=== PATIENT | female | born 1940 | race Caucasian/White ===

== ENCOUNTER 2017-04-26 18:44 | Inpatient (IN) | payer MEDICARE ==
[~2017-04-26] VITALS: Ht 162.6 cm; Wt 68.9 kg
[2017-04-26] MEDS ORDERED: Z GUARD REMEDY PASTE 57 GM TUBE TOP PRN (19:45)
[2017-04-26] MEDS ORDERED: MAGN400O6 PO (19:52)
[2017-04-26] MEDS ORDERED: ACET-2154 PO (19:52)
[2017-04-26] MEDS ORDERED: ENOX40DI SQ (19:52)
[2017-04-26] MEDS ORDERED: MAG-55 PO (19:52)
[2017-04-26] MEDS ORDERED: HYDR-3326 PO (19:52)
[2017-04-26] MEDS ORDERED: ZOLP5TAB8 PO (19:52)
[2017-04-26] MEDS ORDERED: HYDROCODONE/APAP 5-325MG TABLET PO PRN (20:30)
[2017-04-26] MEDS ORDERED: Medication Not On Formulary EA (Mag Hydrox/Al Hydrox/Simeth (Maalox Max Strength Susp) 3 PO PRN (20:30)
[2017-04-26] MEDS ORDERED: MAGNESIUM HYDROXIDE 30 ML LIQUID UDC PO PRN (20:30)
[2017-04-26] MEDS ORDERED: ZOLPIDEM 5 MG TABLET PO PRN (20:30)
[2017-04-26] MEDS ORDERED: MAG HYDROX/AL HYDROX/SIMETH 30 ML LIQUID UDC PO PRN (20:45)
[2017-04-26 21:21] VITALS: BP 138/70
[2017-04-27 09:28] LABS: BASOPHILS % (AUTO) 0.4 % (0.0-2.0); EOSINOPHILS # (AUTO) 0.1 K/uL (0.0-0.7); EOSINOPHILS % (AUTO) 1.4 % (0.0-7.0); HEMATOCRIT 26.9 % (31.2-41.9); HEMOGLOBIN 9.2 g/dL (10.9-14.3); LYMPHOCYTES # (AUTO) 1.6 K/uL (20.0-40.0); LYMPHOCYTES % (AUTO) 22.4 % (20.5-51.5); MEAN CORPUSCULAR HEMOGLOBIN 32.7 uug (24.7-32.8); MEAN CORPUSCULAR HGB CONC 34 g/dL (32.3-35.6); MEAN CORPUSCULAR VOLUME 95.6 fL (75.5-95.3); MONOCYTES # (AUTO) 0.6 K/uL (2.0-10.0); NEUTROPHILS % (AUTO) 67.8 % (38.5-71.5); PLATELET COUNT (AUTO) 224 K/uL (179-408); RED BLOOD CELL COUNT(AUTO) 2.82 MIL/uL (3.63-4.92); WHITE BLOOD COUNT (AUTO) 7.4 K/uL (3.8-11.8)
[2017-04-27 09:37] VITALS: BP 121/55
[2017-04-27 09:38] LABS: IRON, SERUM 17 ug/dL (50-175)
[2017-04-27 09:43] LABS: THYROID STIMULATING HORMONE 0.656 mIU/mL (0.358-3.740)
[2017-04-27 09:58] LABS: ALANINE AMINOTRANSFERASE 27 U/L (14-59); ALKALINE PHOSPHATASE 73 U/L (50-136); ASPARTATE AMINOTRANSFERASE 30 U/L (15-37); BILIRUBIN,TOTAL 0.5 mg/dL (0.2-1.0); CARBON DIOXIDE 28 mmol/L (21-32); CHLORIDE 101 mmol/L (98-107); CHOLESTEROL 144 mg/dL (<200); CREATININE 0.8 mg/dL (0.6-1.3); GLUCOSE 185 mg/dL (74-106); HDL CHOLESTEROL 78 mg/dL (40-60); MAGNESIUM 1.8 mg/dL (1.8-2.4); POTASSIUM 3.5 mmol/L (3.5-5.1); TOTAL PROTEIN, SERUM 6.5 g/dL (6.4-8.2); TRIGLYCERIDES 63 MG/DL (30-150); UREA NITROGEN, BLOOD 17 mg/dL (7-18)
[2017-04-27] MEDS: ENOXAPARIN SODIUM 40 MG/0.4 ML DISP.SYRIN SQ SCH (10:20)
[2017-04-27] MEDS: OXYCODONE HCL 5 MG TABLET PO PRN ×2 (10:22→15:32)
[2017-04-27 20:02] VITALS: BP 141/68
[2017-04-28 07:30] VITALS: BP 131/57
[2017-04-28] MEDS: ENOXAPARIN SODIUM 40 MG/0.4 ML DISP.SYRIN SQ SCH (08:30)
[2017-04-28] MEDS: OXYCODONE HCL 5 MG TABLET PO PRN ×2 (08:39→19:43)
[2017-04-28] MEDS: ACETAMINOPHEN 325 MG TABLET PO PRN (14:26)
[2017-04-28 20:17] VITALS: BP 134/51
[2017-04-29 08:00] VITALS: BP 121/45
[2017-04-29] MEDS: OXYCODONE HCL 5 MG TABLET PO PRN (10:29)
[2017-04-29] MEDS: ENOXAPARIN SODIUM 40 MG/0.4 ML DISP.SYRIN SQ SCH (10:36)
[2017-04-29] MEDS: ACETAMINOPHEN 325 MG TABLET PO PRN (19:34)
[2017-04-29 20:01] VITALS: BP 135/43
[2017-04-30] MEDS: ENOXAPARIN SODIUM 40 MG/0.4 ML DISP.SYRIN SQ SCH (08:28)
[2017-04-30] MEDS: OXYCODONE HCL 5 MG TABLET PO PRN (09:44)
[2017-04-30 10:44] VITALS: BP 113/62
[2017-04-30] MEDS: ACETAMINOPHEN 325 MG TABLET PO PRN ×2 (14:52→21:31)
[2017-04-30 19:50] VITALS: BP 123/60
[2017-05-01] MEDS: PAROXETINE HCL 20 MG TABLET PO SCH (08:29)
[2017-05-01] MEDS: ENOXAPARIN SODIUM 40 MG/0.4 ML DISP.SYRIN SQ SCH (08:29)
[2017-05-01] MEDS: OXYCODONE HCL 5 MG TABLET PO PRN ×2 (08:30→16:40)
[2017-05-01 09:53] VITALS: BP 118/51
[2017-05-01] MEDS ORDERED: MAGNESIUM HYDROXIDE 30 ML LIQUID UDC PO PRN (10:15)
[2017-05-01 20:07] VITALS: BP 127/89
[2017-05-01] MEDS: DOCUSATE SODIUM 100 MG CAPSULE PO SCH (21:16)
[2017-05-01] MEDS: FERROUS SULFATE 325 MG TABEC PO SCH (21:16)
[2017-05-01] MEDS: CALCIUM CARB/VITAMIN D 500MG-200UNITS TABLET PO SCH (21:17)
[2017-05-02 07:44] LABS: BASOPHILS # (AUTO) 0.1 K/uL (0.0-8.0); EOSINOPHILS # (AUTO) 0.3 K/uL (0.0-0.7); EOSINOPHILS % (AUTO) 4.3 % (0.0-7.0); HEMATOCRIT 23.7 % (31.2-41.9); HEMOGLOBIN 8.2 g/dL (10.9-14.3); LYMPHOCYTES # (AUTO) 1.7 K/uL (20.0-40.0); LYMPHOCYTES % (AUTO) 29.8 % (20.5-51.5); MEAN CORPUSCULAR HEMOGLOBIN 33.2 uug (24.7-32.8); MEAN CORPUSCULAR HGB CONC 35 g/dL (32.3-35.6); MEAN CORPUSCULAR VOLUME 95.7 fL (75.5-95.3); MONOCYTES # (AUTO) 0.8 K/uL (2.0-10.0); NEUTROPHILS # (AUTO) 2.9 K/uL (1.8-8.9); NEUTROPHILS % (AUTO) 50.9 % (38.5-71.5); PLATELET COUNT (AUTO) 369 K/uL (179-408); WHITE BLOOD COUNT (AUTO) 5.8 K/uL (3.8-11.8)
[2017-05-02 07:50] LABS: RED BLOOD CELL COUNT(AUTO) 2.48 MIL/uL (3.63-4.92)
[2017-05-02 08:07] LABS: CARBON DIOXIDE 28 mmol/L (21-32); CHLORIDE 111 mmol/L (98-107); CREATININE 0.8 mg/dL (0.6-1.3); GLUCOSE 98 mg/dL (74-106); PHOSPHOROUS 4.1 mg/dL (2.5-4.9); POTASSIUM 4.2 mmol/L (3.5-5.1); UREA NITROGEN, BLOOD 15 mg/dL (7-18)
[2017-05-02 08:18] VITALS: BP 122/50
[2017-05-02] MEDS: ENOXAPARIN SODIUM 40 MG/0.4 ML DISP.SYRIN SQ SCH (08:48)
[2017-05-02] MEDS: FERROUS SULFATE 325 MG TABEC PO SCH ×2 (08:49→20:45)
[2017-05-02] MEDS: CALCIUM CARB/VITAMIN D 500MG-200UNITS TABLET PO SCH ×2 (08:49→20:45)
[2017-05-02] MEDS: PAROXETINE HCL 20 MG TABLET PO SCH (08:50)
[2017-05-02] MEDS: OXYCODONE HCL 5 MG TABLET PO PRN (08:50)
[2017-05-02 20:37] VITALS: BP 132/50
[2017-05-02] MEDS: DOCUSATE SODIUM 100 MG CAPSULE PO SCH (20:45)
[2017-05-02] MEDS: ACETAMINOPHEN 325 MG TABLET PO PRN (20:45)
[2017-05-03 08:00] VITALS: BP 133/53
[2017-05-03] MEDS: CALCIUM CARB/VITAMIN D 500MG-200UNITS TABLET PO SCH ×2 (09:11→21:00)
[2017-05-03] MEDS: PAROXETINE HCL 20 MG TABLET PO SCH (09:11)
[2017-05-03] MEDS: FERROUS SULFATE 325 MG TABEC PO SCH ×2 (09:11→21:07)
[2017-05-03] MEDS: ENOXAPARIN SODIUM 40 MG/0.4 ML DISP.SYRIN SQ SCH (09:11)
[2017-05-03] MEDS: ACETAMINOPHEN 325 MG TABLET PO PRN ×2 (12:25→22:52)
[2017-05-03 20:44] VITALS: BP 121/66
[2017-05-03] MEDS: DOCUSATE SODIUM 100 MG CAPSULE PO SCH (21:00)
[2017-05-04 08:00] VITALS: BP 120/60
[2017-05-04] MEDS: CALCIUM CARB/VITAMIN D 500MG-200UNITS TABLET PO SCH (08:24)
[2017-05-04] MEDS: ENOXAPARIN SODIUM 40 MG/0.4 ML DISP.SYRIN SQ SCH (08:25)
[2017-05-04] MEDS: FERROUS SULFATE 325 MG TABEC PO SCH ×2 (08:26→20:18)
[2017-05-04] MEDS: ACETAMINOPHEN 325 MG TABLET PO PRN ×2 (08:26→20:19)
[2017-05-04] MEDS: PAROXETINE HCL 20 MG TABLET PO SCH (08:27)
[2017-05-04] MEDS: CALCIUM CARBONATE PO SCH (17:22)
[2017-05-04] MEDS: [UNRECOGNIZED DRUG - OTHER] PO SCH (17:22)
[2017-05-04] MEDS: DOCUSATE SODIUM 100 MG CAPSULE PO SCH (20:18)
[2017-05-04 20:30] VITALS: BP 127/56
[2017-05-05] MEDS: FERROUS SULFATE 325 MG TABEC PO SCH ×2 (08:44→20:23)
[2017-05-05] MEDS: PAROXETINE HCL 20 MG TABLET PO SCH (08:45)
[2017-05-05] MEDS: [UNRECOGNIZED DRUG - OTHER] PO SCH ×2 (08:45→17:15)
[2017-05-05] MEDS: CALCIUM CARBONATE PO SCH ×2 (08:45→17:15)
[2017-05-05] MEDS: ENOXAPARIN SODIUM 40 MG/0.4 ML DISP.SYRIN SQ SCH (08:46)
[2017-05-05 08:55] VITALS: BP 135/63
[2017-05-05] MEDS: DOCUSATE SODIUM 100 MG CAPSULE PO SCH (20:22)
[2017-05-05 20:28] VITALS: BP 137/64
[2017-05-06 08:00] VITALS: BP 141/64
[2017-05-06] MEDS: FERROUS SULFATE 325 MG TABEC PO SCH ×2 (08:30→20:36)
[2017-05-06] MEDS: ACETAMINOPHEN 325 MG TABLET PO PRN (08:30)
[2017-05-06] MEDS: CALCIUM CARBONATE PO SCH ×2 (08:30→16:41)
[2017-05-06] MEDS: [UNRECOGNIZED DRUG - OTHER] PO SCH ×2 (08:30→16:41)
[2017-05-06] MEDS: PAROXETINE HCL 20 MG TABLET PO SCH (08:30)
[2017-05-06] MEDS: ENOXAPARIN SODIUM 40 MG/0.4 ML DISP.SYRIN SQ SCH (08:31)
[2017-05-06 19:56] VITALS: BP 136/49
[2017-05-06] MEDS: DOCUSATE SODIUM 100 MG CAPSULE PO SCH (20:36)
[2017-05-07 08:41] VITALS: BP 125/63
[2017-05-07] MEDS: ACETAMINOPHEN 325 MG TABLET PO PRN ×2 (08:48→23:25)
[2017-05-07] MEDS: PAROXETINE HCL 20 MG TABLET PO SCH (08:48)
[2017-05-07] MEDS: FERROUS SULFATE 325 MG TABEC PO SCH ×2 (08:48→20:59)
[2017-05-07] MEDS: ENOXAPARIN SODIUM 40 MG/0.4 ML DISP.SYRIN SQ SCH (08:50)
[2017-05-07] MEDS: [UNRECOGNIZED DRUG - OTHER] PO SCH ×2 (08:52→17:00)
[2017-05-07] MEDS: CALCIUM CARBONATE PO SCH ×2 (08:52→17:00)
[2017-05-07] MEDS: DOCUSATE SODIUM 100 MG CAPSULE PO SCH (20:59)
[2017-05-07 21:19] VITALS: BP 119/64
[2017-05-08 07:06] VITALS: BP 141/66
[2017-05-08] MEDS: ENOXAPARIN SODIUM 40 MG/0.4 ML DISP.SYRIN SQ SCH (08:39)
[2017-05-08] MEDS: FERROUS SULFATE 325 MG TABEC PO SCH ×2 (08:41→20:53)
[2017-05-08] MEDS: PAROXETINE HCL 20 MG TABLET PO SCH (08:41)
[2017-05-08] MEDS: ACETAMINOPHEN 325 MG TABLET PO PRN ×2 (08:42→20:56)
[2017-05-08] MEDS: CALCIUM CARBONATE PO SCH ×2 (09:52→16:59)
[2017-05-08] MEDS: [UNRECOGNIZED DRUG - OTHER] PO SCH ×2 (09:52→16:59)
[2017-05-08] MEDS: DOCUSATE SODIUM 100 MG CAPSULE PO SCH (20:53)
[2017-05-09 07:15] VITALS: BP 132/57
[2017-05-09] MEDS: ENOXAPARIN SODIUM 40 MG/0.4 ML DISP.SYRIN SQ SCH (09:05)
[2017-05-09] MEDS: PAROXETINE HCL 20 MG TABLET PO SCH (09:08)
[2017-05-09] MEDS: FERROUS SULFATE 325 MG TABEC PO SCH ×2 (09:08→20:23)
[2017-05-09] MEDS: ACETAMINOPHEN 325 MG TABLET PO PRN (09:14)
[2017-05-09] MEDS: [UNRECOGNIZED DRUG - OTHER] PO SCH ×2 (09:15→17:25)
[2017-05-09] MEDS: CALCIUM CARBONATE PO SCH ×2 (09:15→17:25)
[2017-05-09 20:00] VITALS: BP 128/59
[2017-05-09] MEDS: DOCUSATE SODIUM 100 MG CAPSULE PO SCH (20:23)
[2017-05-10 07:30] VITALS: BP 134/49
[2017-05-10 08:08] LABS: ALANINE AMINOTRANSFERASE 26 U/L (14-59); ALKALINE PHOSPHATASE 197 U/L (50-136); ASPARTATE AMINOTRANSFERASE 18 U/L (15-37); BILIRUBIN,TOTAL 0.4 mg/dL (0.2-1.0); CARBON DIOXIDE 28 mmol/L (21-32); CHLORIDE 109 mmol/L (98-107); CREATININE 0.7 mg/dL (0.6-1.3); GLUCOSE 90 mg/dL (74-106); MAGNESIUM 2.1 mg/dL (1.8-2.4); PHOSPHOROUS 4.2 mg/dL (2.5-4.9); TOTAL PROTEIN, SERUM 6.3 g/dL (6.4-8.2); UREA NITROGEN, BLOOD 12 mg/dL (7-18)
[2017-05-10] MEDS: PAROXETINE HCL 20 MG TABLET PO SCH (08:20)
[2017-05-10] MEDS: [UNRECOGNIZED DRUG - OTHER] PO SCH ×2 (08:20→17:08)
[2017-05-10] MEDS: ACETAMINOPHEN 325 MG TABLET PO PRN (08:20)
[2017-05-10] MEDS: CALCIUM CARBONATE PO SCH ×2 (08:20→17:08)
[2017-05-10] MEDS: FERROUS SULFATE 325 MG TABEC PO SCH ×2 (08:20→20:33)
[2017-05-10 08:26] LABS: BASOPHILS % (AUTO) 0.9 % (0.0-2.0); EOSINOPHILS # (AUTO) 0.2 K/uL (0.0-0.7); EOSINOPHILS % (AUTO) 3.9 % (0.0-7.0); HEMATOCRIT 26.6 % (31.2-41.9); HEMOGLOBIN 9.2 g/dL (10.9-14.3); LYMPHOCYTES # (AUTO) 1.7 K/uL (20.0-40.0); LYMPHOCYTES % (AUTO) 35.6 % (20.5-51.5); MEAN CORPUSCULAR HEMOGLOBIN 33.7 uug (24.7-32.8); MEAN CORPUSCULAR HGB CONC 35 g/dL (32.3-35.6); MEAN CORPUSCULAR VOLUME 97.3 fL (75.5-95.3); MONOCYTES # (AUTO) 0.6 K/uL (2.0-10.0); MONOCYTES % (AUTO) 11.5 % (0.0-11.0); NEUTROPHILS # (AUTO) 2.3 K/uL (1.8-8.9); NEUTROPHILS % (AUTO) 48.1 % (38.5-71.5); PLATELET COUNT (AUTO) 432 K/uL (179-408); RED BLOOD CELL COUNT(AUTO) 2.73 MIL/uL (3.63-4.92); WHITE BLOOD COUNT (AUTO) 4.8 K/uL (3.8-11.8)
[2017-05-10 20:26] VITALS: BP 137/44
[2017-05-10] MEDS: DOCUSATE SODIUM 100 MG CAPSULE PO SCH (20:33)
[2017-05-11 07:30] VITALS: BP 138/62
[2017-05-11] MEDS: CALCIUM CARBONATE PO SCH (08:10)
[2017-05-11] MEDS: [UNRECOGNIZED DRUG - OTHER] PO SCH (08:10)
[2017-05-11] MEDS: FERROUS SULFATE 325 MG TABEC PO SCH (08:10)
[2017-05-11] MEDS: PAROXETINE HCL 20 MG TABLET PO SCH (08:10)
[2017-05-11] MEDS: ACETAMINOPHEN 325 MG TABLET PO PRN (08:15)
== END 2017-05-11 15:00 | disposition home health service (06) | DRG 559 ==
PROVIDERS: ADMIT Physical Medicine & Rehabilitation Pain Medicine; ATTEND Physical Medicine & Rehabilitation Pain Medicine
DX: M80.051D Age-related osteoporosis with current pathological fracture, right femur, subsequent encounter for fracture with routine healing (principal); E43 Unspecified severe protein-calorie malnutrition; N17.0 Acute kidney failure with tubular necrosis; D50.9 Iron deficiency anemia, unspecified; I10 Essential (primary) hypertension; R26.9 Unspecified abnormalities of gait and mobility; E66.9 Obesity, unspecified; Z68.26 Body mass index [BMI] 26.0-26.9, adult; I70.0 Atherosclerosis of aorta; M75.31 Calcific tendinitis of right shoulder; R73.03 Prediabetes
CPT/HCPCS: 36415; 73502; 73551; 82306; 83550; 83735; 84100; 84443; 85025; 92526; 92610; 97110; 97112; 97116; 97530; 97535; J1650